=== PATIENT | female | born 1960 | race Caucasian/White ===

== ENCOUNTER → 2020-09-03 11:57 | Outpatient (BNVA) | payer OTHER, SELFPAY | DX: R21 Rash and other nonspecific skin eruption (principal); J02.9 Acute pharyngitis, unspecified; B09 Unspecified viral infection characterized by skin and mucous membrane lesions; J01.00 Acute maxillary sinusitis, unspecified | CPT/HCPCS: 87071; 87880 ==

== ENCOUNTER 2021-05-21 15:41 | Outpatient (CLI) | payer OTHER, SELFPAY ==
--- NOTE | 2021-05-21 15:47 | XR_ITS ---
WS: [id number] RIGHT FOOT: 3 VIEW(S) TECHNIQUE: AP, oblique and lateral. HISTORY: RIGHT ANKLE AND HEEL PAIN COMPARISON: None available. No acute fracture or dislocation. Normal tarsal/metatarsal alignment. Small calcaneal spur. No soft tissue abnormality. XR/XR foot RT min 3V* [id number] IMPRESSION: Small calcaneal spur. Otherwise negative.
--- NOTE | 2021-05-21 15:47 | XR_ITS ---
WS: [id number] RIGHT ANKLE: 3 VIEW(S) TECHNIQUE: AP, oblique(s) and lateral. HISTORY: RIGHT ANKLE AND HEEL PAIN COMPARISON: None available. Normal anatomic alignment with no fracture or dislocation. No joint effusion or widening of the ankle mortise. Small calcaneal spur. No soft tissue abnormality. XR/XR ankle RT min 3V* [id number] IMPRESSION: Small calcaneal spur.
== END 2021-05-21 15:42 | disposition home or self-care (01) ==
PROVIDERS: PCP Family Medicine; Visit Provider Clinical Nurse Specialist Adult Health
DX: M79.671 Pain in right foot (principal); M77.31 Calcaneal spur, right foot
CPT/HCPCS: 73610; 73630

== ENCOUNTER → 2022-12-31 15:52 | Outpatient (BNVA) | payer OTHER, SELFPAY | PROVIDERS: PCP Family Medicine; Visit Provider Family Medicine | DX: S92.511A Displaced fracture of proximal phalanx of right lesser toe(s), initial encounter for closed fracture (principal); W22.03XA Walked into furniture, initial encounter | CPT/HCPCS: 73630 ==

== ENCOUNTER 2023-01-20 10:59 | Outpatient (CLI) | payer OTHER, SELFPAY ==
--- NOTE | 2023-01-20 11:21 | XRR_ITS ---
PROCEDURE INFORMATION: Exam: XR Right Foot Exam date and time: 01/20/2023 11:26 AM Age: 62 years old Clinical indication: Condition or disease; Other: Broke their right 5th metatarsal 5 weeks; Additional info: S92.919a - unspecified fracture of unspecified toe(s), in. . . TECHNIQUE: Imaging protocol: Radiologic exam of the right foot. Views: 3 or more views. COMPARISON: CR XR foot RT min 3V* [id number] 12/31/2022 3:50 PM FINDINGS: Bones/joints: There is a healing oblique mildly displaced comminuted fracture involving the midshaft proximal phalange 5th digit. The 5th metatarsal is intact. Soft tissues: Soft tissue edema is seen in the proximal 5th digit. XR/XR foot RT min 3V* [id number] IMPRESSION: 1. Healing comminuted fracture proximal phalange of the 5th digit. 2. Soft tissue edema proximal 5th digit
== END 2023-01-20 11:00 | disposition home or self-care (01) ==
PROVIDERS: PCP Family Medicine; Visit Provider Family Medicine
DX: S92.511D Displaced fracture of proximal phalanx of right lesser toe(s), subsequent encounter for fracture with routine healing (principal); R60.0 Localized edema; X58.XXXD Exposure to other specified factors, subsequent encounter
CPT/HCPCS: 73630

== ENCOUNTER → 2023-10-07 14:17 | Outpatient (BNVA) | payer OTHER, SELFPAY | PROVIDERS: PCP Family Medicine; Visit Provider Family Medicine | DX: Z13.6 Encounter for screening for cardiovascular disorders (principal); E03.9 Hypothyroidism, unspecified; Z00.00 Encounter for general adult medical examination without abnormal findings | CPT/HCPCS: 80053; 80061; 83721; 84443 ==

== ENCOUNTER → 2023-11-22 11:07 | Outpatient (BNVA) | payer OTHER, SELFPAY | PROVIDERS: PCP Family Medicine; Visit Provider Family Medicine | DX: R39.9 Unspecified symptoms and signs involving the genitourinary system (principal); R05.3 Chronic cough; R05.8 Other specified cough | CPT/HCPCS: 81000 ==

== ENCOUNTER → 2024-04-09 08:26 | Outpatient (BNVA) | payer OTHER, SELFPAY | PROVIDERS: PCP Family Medicine; Visit Provider Podiatrist Foot & Ankle Surgery | DX: M79.672 Pain in left foot (principal); M72.2 Plantar fascial fibromatosis | CPT/HCPCS: 73630 ==

== ENCOUNTER 2024-06-06 19:54 | Inpatient (IN) | payer OTHER, SELFPAY ==
[2024-06-06] VITALS (26 sets, daily range): BP systolic 131–184; BP diastolic 85–102; PULSE 118–149; RESP 12–24; TEMP 38.1; O2SAT 90–99; BMI 23.8
--- NOTE | 2024-06-06 20:18 | CTR_ITS ---
PROCEDURE INFORMATION: Exam: CT Abdomen And Pelvis With Contrast Exam date and time: 06/06/2024 8:54 PM Age: 63 years old Clinical indication: Abdominal pain; Localized; Prior surgery; Surgery date: 6+ months; Surgery type: Tubal; Patient HX: C/O lower abd pain with nausea TECHNIQUE: Imaging protocol: Computed tomography of the abdomen and pelvis with contrast. Radiation optimization: All CT scans at this facility use at least one of these dose optimization techniques: automated exposure control; mA and/or kV adjustment per patient size (includes targeted exams where dose is matched to clinical indication); or iterative reconstruction. Contrast material: OMNI 350; Contrast volume: 100 ml; Contrast route: INTRAVENOUS (IV); COMPARISON: No relevant prior studies available. RADIATION DOSE METRICS: Total DLP (mGy-cm): 482.35 FINDINGS: Lungs: Visualized lung bases are clear. Liver: Normal appearance of the liver. Gallbladder and biliary ducts: Normal appearance of the gallbladder. No radiopaque cholelithiasis. Pancreas: Normal appearance of the pancreas. No ductal dilation. Spleen: Normal appearance of the spleen. Adrenal glands: Normal appearance of both adrenal glands. Kidneys and ureters: Normal renal parenchymal enhancement. No evidence of hydronephrosis. No nephrolithiasis is seen however evaluation for nephrolithiasis is limited secondary to contrast excretion. Stomach and bowel: Normal appearance of the stomach. Normal appearance of the small bowel without luminal dilation suggested. Mild proximal colonic stool. Appendix: The appendix is dilated and enhancing with adjacent inflammatory change consistent with acute appendicitis. Appendix measures approximately 1 cm in diameter. Minimal adjacent fluid without evidence of an abscess. No evidence of free air to suggest perforation. Intraperitoneal space: See Appendix finding. Vasculature: Pelvic calcifications, likely representing incidental phleboliths. There is moderate calcific atherosclerotic disease of the abdominal aorta. No evidence of an aneurysm. Lymph nodes: Unremarkable. No enlarged lymph nodes. Urinary bladder: Normal appearance of the urinary bladder. No intravesicular stone. Reproductive: Patient is status post hysterectomy. Bones/joints: Minimal scattered degenerative changes of the visualized spine. No aggressive osseous lesion or fracture is seen. Soft tissues: Unremarkable. CT/CT abdomen pelvis w con* [id number] IMPRESSION: 1. Dilated appendix with enhancement of the moore and adjacent inflammation consistent with appendicitis. Minimal adjacent fluid without evidence of abscess formation or free air to suggest gross perforation. 2. Other incidental and chronic findings as above.
--- NOTE | 2024-06-06 20:31 | W.ED.ABDPA2 ---
HPI - Abdominal Pain General: Chief Complaint: Abdominal Pain Stated Complaint: severe abd pain entire abd Time Seen by Provider: 06/06/24 20:15 History of Present Illness: 63-year-old female with a history of hypertension and hypothyroidism who presents to the emergency room with abdominal pain. Pain is diffuse but seems to be more lower than upper. She is very tender. She is a bit tachycardic on presentation. She has had some nausea but no vomiting. She has got a fever of 100.6 on presentation. No dysuria. Related Data Previous Rx's Medication Instructions Recorded camwalker #1 ea 12/31/22 citalopram 20 mg tablet See Rx Instructions .Route 06/19/23 .COMPLEX #90 tabs valsartan 80 1 tab PO DAILY #90 tabs 06/19/23 mg-hydrochlorothiazide 12.5 mg tablet benzonatate 200 mg capsule 200 mg PO BID PRN cough #30 caps 11/22/23 methylprednisolone 4 mg tablets in See Rx Instructions PO PER PKG DIR 04/13/24 a dose pack (Medrol (Gordon)) #21 ea amitriptyline 10 mg tablet 10 mg PO DAILY #90 tabs 05/31/24 levothyroxine 50 mcg tablet See Rx Instructions .Route 05/31/24 .COMPLEX #90 tabs Allergies Allergy/AdvReac Type Severity Reaction Status Date / Time codeine Allergy makes her Verified 06/06/24 20:13 feel funny Olnzpjz-CWP-NvV Reductase Allergy body aches Verified 06/06/24 20:13 Inhibitor Sulfa (Sulfonamide Allergy rash Verified 06/06/24 20:13 Antibiotics) Review of Systems Narrative: Constitutional symptoms: Negative except as documented in HPI. Skin symptoms: Negative except as documented in HPI. Eye symptoms: Negative except as documented in HPI. ENMT symptoms: Negative except as documented in HPI. Respiratory symptoms: Negative except as documented in HPI. Cardiovascular symptoms: Negative except as documented in HPI. Gastrointestinal symptoms: Negative except as documented in HPI. Genitourinary symptoms: Negative except as documented in HPI. Musculoskeletal symptoms: Negative except as documented in HPI. Neurologic symptoms: Negative except as documented in HPI. Psychiatric symptoms: Negative except as documented in HPI. Endocrine symptoms: Negative except as documented in HPI. [facility] ED PFSH: Medical History Hypertension Hypothyroidism Surgical History Hx of breast reduction, elective H/O: hysterectomy History of thyroid surgery Social History Smoking and tobacco/nicotine status: never used tobacco/nicotine Alcohol intake: current Alcohol intake frequency: holidays/special occasions only Substance/Drug Use: never Lives independently: Yes Household members: spouse Marital status: Number of children: 2 Current occupational status: retired Pets and animals: Yes Pets & animals: dog(s) Sexually active: Yes Physical Exam Narrative: EXAM NARRATIVE: General: Alert, no acute distress. Skin: Warm, dry. Head: Normocephalic, atraumatic. Neck: Supple, trachea midline. Eye: Extraocular movements are intact. Ears, nose, mouth and throat: mucosa moist. Cardiovascular: Regular, Normal peripheral perfusion. Respiratory: Lungs are clear to auscultation, respirations are non-labored, breath sounds are equal, Symmetrical chest wall expansion. Gastrointestinal: Soft, moderate diffuse abdominal pain to palpation, Non distended Musculoskeletal: Normal ROM, no deformity. Neurological: Alert and oriented, No focal neurological deficit observed. Psychiatric: Cooperative, appropriate mood & affect. Course Vital Signs: Vital signs: Vital Signs Temperature 100.6 F H 06/06/24 20:09 Pulse Rate 122 H 06/06/24 21:30 Respiratory Rate 13 06/06/24 21:30 Blood Pressure 165/88 06/06/24 21:30 Pulse Oximetry 96 06/06/24 21:30 Oxygen Delivery Me thod Room Air 06/06/24 20:38 MDM - Abdominal Pain Medical Decision Making Medical decision making: Differential diagnosis including but not limited to and based on the above HPI, review of systems and physical exam: Diverticulitis, urinary tract infection, small bowel obstruction, colitis Orders placed to evaluate differential diagnosis based on the above differential, HPI and physical exam Lab Review: Laboratory results were reviewed and interpreted by myself the emergency room physician. Leukocytosis with a white count of 16,000. Hemoglobin is 12.8. BUN and creatinine are 14 and 0.7. Respiratory panel is negative. Lactic acid is 2.3. Fluids are being given. Heart rate has improved with fluids and pain control. I reviewed the patient's medical record. CT of the abdomen and pelvis: Appears to have an acute appendicitis. I am waiting on official radiology review. This film was reviewed and interpreted by myself. Dr. Mendez will follow-up on the official read and if radiologist agree we will put in admit orders. Reexamination: Patient says the pain medicine worked for a while but is not working as well now. Redosing. Fluids are being given. Consultation: Spoke with Dr. Brown who is on-call for general surgery. He agrees to admission. Assessment and plan: Acute appendicitis ?IV fluids. IV Zosyn. IV Dilaudid. -I discussed the patient with the hospitalist on-call who is admitting the patient. - Discussed findings and plan with patient. Answered any questions. - All laboratory values were reviewed and interpreted personally by myself, the ER physician - All imaging was reviewed and interpreted personally by myself, the ER physician. - Evaluation and treatment of this problem were appropriate in the emergency setting Lab Data 06/06/24 20:31 06/06/24 20:31 Labs/Radiology: Laboratory Results WBC 15.63 10^3/uL (3.29-11.43) H 06/06/24 20:31 RBC 4.40 10^6/uL (3.85-5.65) 06/06/24 20:31 Hgb 12.80 g/dL (11.27-16.99) 06/06/24 20:31 Hct 37.6 % (36-47) 06/06/24 20: MCV 85.5 fl (85-98) 06/06/24 20: MCH 29.1 pg (27-33) 06/06/24 20: MCHC 34.0 g/dL (30-55) 06/06/24 20: RDW 12.3 % (12.1-15.1) 06/06/24 20: Plt Count 230 10^3/cmm (157-399) 06/06/24 20: MPV 11.2 fL (7.4-10.4) H 06/06/24 20:31 Neut % (Auto) 78.5 % 06/06/24 20: Lymph % (Auto) 12.1 % 06/06/24 20:31 Randall % (Auto) 7.5 % 06/06/24 20:31 Eos % (Auto) 1.0 % 06/06/24 20:31 Baso % (Auto) 0.5 % 06/06/24 20:31 Neut # (Auto) 12.27 10^3/uL (1.8-7.7) H 06/06/24 20:31 Lymph # (Auto) 1.9 10^3/uL (0.8-4.8) 06/06/24 20:31 Randall # (Auto) 1.2 10^3/uL (0.2-0.9) H 06/06/24 20:31 Eos # (Auto) 0.2 10^3/uL (0.0-0.8) 06/06/24 20: Baso # (Auto) 0.1 10^3/uL (0.0-0.1) 06/06/24 20:31 Nucleated RBC % (auto) 0 % 06/06/24 20:31 Nucleated RBCs # 0.0 /100WBC 06/06/24 20:31 Sodium 138 mmol/L (136-145) 06/06/24 20:31 Potassium 3.7 mmol/L (3.5-5.1) 06/06/24 20:31 Chloride 102 mmol/L (98-107) 06/06/24 20:31 Carbon Dioxide 24 mmol/L (22-29) 06/06/24 20:31 Anion Gap 15.7 (5-19) 06/06/24 20:31 BUN 14 mg/dL (8-23) 06/06/24 20:31 Creatinine 0.7 mg/dL (0.5-0.9) 06/06/24 20:31 GFR Calculation 84.8 mL/min (90-130) L 06/06/24 20:31 Glucose 135 mg/dL (65-115) H 06/06/24 20:31 Calculated Osmolality 289 mOsm/kg (285-295) 06/06/24 20:31 Lactic Acid 2.3 mmol/L (0.5-2.2) H 06/06/24 20:31 Calcium 9.3 mg/dL (8.5-10.5) 06/06/24 20:31 Total Bilirubin 0.2 mg/dL (0.15-1.2) 06/06/24 20:31 AST 12 U/L (0-32) 06/06/24 20:31 ALT 11 U/L (0-33) 06/06/24 20:31 Alkaline Phosphatase 83 U/L (35-105) 06/06/24 20:31 C-Reactive Protein 3.0 mg/L (0.0-4.9) 06/06/24 20:31 Total Protein 7.1 g/dL (6.6-8.7) 06/06/24 20:31 Albumin 4.4 g/dL (3.5-5.2) 06/06/24 20:31 Globulin 2.7 g/dL (1.3-4.6) 06/06/24 20:31 Lipase 43 U/L (13-60) 06/06/24 20:31 Procalcitonin 0.04 ng/mL (0-0.5) 06/06/24 20:31 Amorphous Sediment Not Reportable 06/06/24 21:53 Coronavirus (PCR) Negative (Negative) 06/06/24 20:40 Influenza A (PCR) Negative (Negative) 06/06/24 20:40 Influenza Type B (PCR) Negative (Negative) 06/06/24 20:40 RSV (PCR) Negative (Negative) 06/06/24 20:40 XR interpretation done by ED provider, pending radiology final review Discharge Plan Discharge Patient Disposition: Admitted As Inpatient Clinical Impression: Acute appendicitis Condition: Stable Coding Level of Care Code ED Supervisor Product Inspection for Carla Brown
[2024-06-06] MEDS: ondansetron 2 mg/ML SDV 2 mL 8 MG IVP (20:34)
[2024-06-06] MEDS: sodium chloride 0.9% 1,000 ML 999 ML IV (20:34)
[2024-06-06] MEDS: HYDROmorphone 1 mg/mL INJ 1 mL IVP ×2 (20:38→22:23)
[2024-06-06 20:51] LABS: Basophils # 0.1 10^3/uL (0.0-0.1); Basophils % 0.5 %; Eosinophils # 0.2 10^3/uL (0.0-0.8); Hematocrit 37.6 % (36-47); Lymphocytes # 1.9 10^3/uL (0.8-4.8); Lymphocytes % 12.1 %; Mean Corpuscular Hemoglobin 29.1 pg (27-33); Mean Corpuscular Volume 85.5 fl (85-98); Mean Platelet Volume 11.2 fL (7.4-10.4); Monocytes # 1.2 10^3/uL (0.2-0.9); Monocytes % 7.5 %; Neutrophils # 12.27 10^3/uL (1.8-7.7); Neutrophils % 78.5 %; Nucleated Red Blood Cells % 0 %; Platelet Count 230 10^3/cmm (157-399); Red Cell Distribution Width 12.3 % (12.1-15.1); White Blood Count 15.63 10^3/uL (3.29-11.43)
[2024-06-06] MEDS: iohexol 350 mg/mL 500 mL Btl (per mL) IV (20:57)
[2024-06-06 21:11] LABS: Alanine Aminotransferase 11 U/L (0-33); Albumin Level 4.4 g/dL (3.5-5.2); Alkaline Phosphatase 83 U/L (35-105); Anion Gap 15.7 (5-19); Aspartate Amino Transferase 12 U/L (0-32); Blood Urea Nitrogen 14 mg/dL (8-23); Calcium 9.3 mg/dL (8.5-10.5); Carbon Dioxide 24 mmol/L (22-29); Chloride 102 mmol/L (98-107); Creatinine Clr Calc Pharmacy 82.1289; Globulin 2.7 g/dL (1.3-4.6); Glomerular Filtration Rate 84.8 mL/min (90-130); Glucose 135 mg/dL (65-115); Lipase 43 U/L (13-60); Osmolality Calculated 289 mOsm/kg (285-295); Potassium 3.7 mmol/L (3.5-5.1); Sodium 138 mmol/L (136-145); Total Bilirubin 0.2 mg/dL (0.15-1.2); Total Protein 7.1 g/dL (6.6-8.7)
[2024-06-06 21:12] LABS: Lactic Sepsis W/Reflex 2.3 mmol/L (0.5-2.2)
[2024-06-06 21:18] LABS: Procalcitonin 0.04 ng/mL (0-0.5)
[2024-06-06 21:31] LABS: Covid PCR NEGATIVE (Negative); Influenza A NEGATIVE (Negative); Influenza B NEGATIVE (Negative); Respiratory Syncytial Virus Ce NEGATIVE (Negative)
[2024-06-06 22:03] LABS: Bilirubin Urine Negative (Negative); Blood Urine Negative (Negative); Glucose Urine UA Negative (Normal); Ketones Urine Negative (Negative); Leukocyte Esterase Urine Negative (Negative); Nitrate Urine Negative (Negative); Protein Urine Negative (Negative); Urine Appearance Clear (CLEAR); Urine Color Yellow (Yellow); Urobilinogen Urine 0.2 mg/dL (Negative)
[2024-06-06 22:05] LABS: Bacteria Urine None Seen /hpf; RBC Urine 0-2 /hpf (0-2); Squamous Epithelial Cell Urine 0-5 /hpf (0-5); WBC Urine 0-5 /hpf (0-5)
[2024-06-06 22:10] LABS: Specific Gravity, Urine 1.057 (1.005-1.030)
[2024-06-06] MEDS: sodium chloride 0.9% 1,000 ML 100 ML IV (22:21)
[2024-06-06] MEDS: piperacillin-tazobactam 4.5 GM in sodium chloride 0.9% (plus) 50 ML IV (22:25)
[2024-06-06 22:36] LABS: Reflex Lactate Order REFLEX LACTIC ORDERD
[2024-06-07] VITALS (26 sets, daily range): BP systolic 93–178; BP diastolic 51–95; PULSE 89–117; RESP 13–18; TEMP 36.6–39.1; O2SAT 90–100
[2024-06-07] MEDS: oxyCODONE 5 mg IR Tab/Cap PO ×4 (00:19→21:33)
[2024-06-07 00:21] LABS: Lactic Acid level (Lactate) 2.4 mmol/L (0.5-2.2)
[2024-06-07] MEDS: acetaminophen 500 mg Tablet 1000 MG PO (05:15)
[2024-06-07] MEDS: piperacillin-tazobactam 3.375 GM in sodium chloride 0.9% (plus) 50 ML IV ×2 (06:39→21:33)
[2024-06-07] MEDS: sodium chloride 0.9% 1,000 ML 100 ML IV (08:47)
[2024-06-07] MEDS: ondansetron 2 mg/ML SDV 2 mL 4 MG IVP (09:19)
[2024-06-07] MEDS: morphine 4 mg/mL SDV 1 mL 2 MG IVP ×2 (09:22→22:32)
--- NOTE | 2024-06-07 09:46 | PC.CHAP ---
Pastoral Care Encounter/Spiritual Assessment Type of Contact [] Declined finishing and shipping supervisor visit [] Patient/Family/Request visit [] Outpatient visit [] Follow-up visit [] Physician referral [] Code/Alert [x] Routine visit [] Staff referral [] Actively dying [] Patient sleeping [] Family support [] [] Out of room [] Palliative care [] [x] Receiving care in room [] Pre-surgical visit [] Trauma [] Long length of stay [] ICU visit [] Other: Relational/Emotional Strength [] Patient feels connected with others/family/visitors/staff [] Distress [] Loneliness/isolation [] Abandonment Spirituality of Patient [] Person of Bita [] Attends Jew of their Bita [] Believes in Prayer [] Reads Bible or Samaritan materials [] There are Spiritual issues to be addressed Bi Tester Interventions [x] Prayer [] Active listening [] Non-anxious presence [] Spiritual/emotional support [] Crisis/trauma care [] Spiritual counseling [] Bereavement support [] Provided bereavement packet [] Provided Bible/devotional materials [] Provided toy/stuffed animal, coloring book to patient or family member [] Provided Communion [] Anointing/Maud [] Salvation [] Completed spiritual assessment [] Other: Impact on Illness or Injury [] Angry [] Fearful [] Anxious [] Often cries [] Exhaustion [] Unable to work [] Unable to attend roman catholic [] Unable to walk/stand [] Unable to read [] Unable to drive [] Unable to eat/drink [] Unable to sleep [] Unable to be with family [] Patient intubated [] Other: Summary Time spent with patient
--- NOTE | 2024-06-07 11:24 | PC.NURSE ---
surgery Patient went down to surgery, and family at her side.
[2024-06-07] MEDS: sodium chloride 0.9% 1,000 ML 30 ML IV (11:43)
--- NOTE | 2024-06-07 12:04 | P.ANESASSM_ITS ---
Pre-Anesthetic Assessment Height/Weight: Height 1.68 m Weight 67.132 kg Temp Pulse Resp BP Pulse Ox O2 Del Method 101.1 F H 109 H 18 127/65 97 Room Air 06/07/24 11:33 06/07/24 11:33 06/07/24 11:33 06/07/24 11:33 06/07/24 11:33 06/07/24 11:33 Operation Date: 06/07/24 14:10 Proposed Procedures p Laparoscopic Appendectomy(Not Applicable) - Eitan Brown MD Familial anesthetic complications: Sensitive to anesthesia, slow to wake up and slow Resp rate if given too much Was Beta Karley taken within 24 hours: N/A Was Clonidine taken within 24 hours: N/A Last intake: Intake Last Liquid Date 06/06/24 Last Liquid Time 23:58 Last Solid Date 06/06/24 Last Solid Time 16:00 Social No alcohol and No tobacco Exam alert, oriented x 3, clear to auscultation bilaterally and regular rate & rhythm Airway Mallampati: Class II Dentition: full CV/HEM Hypertension Metabolic Hyperlipidemia Anesthetic Plan ASA status: 2 Anesthesia: General Risk of > 500 ml blood loss (7ml/kg in children): No Medications/Allergies Home Medications Medication Instructions Recorded Confirmed Last Taken Type citalopram 20 mg tablet See Rx Instructions .Route 06/19/23 06/07/24 06/06/24 Rx .COMPLEX #90 tabs valsartan 80 1 tab PO DAILY #90 tabs 06/19/23 06/07/24 06/06/24 Rx mg-hydrochlorothiazide 12.5 mg tablet amitriptyline 10 mg tablet 10 mg PO DAILY #90 tabs 05/31/24 06/07/24 06/06/24 Rx levothyroxine 50 mcg tablet See Rx Instructions .Route 05/31/24 06/07/24 06/06/24 Rx .COMPLEX #90 tabs Allergies Allergy/AdvReac Type Severity Reaction Status Date / Time codeine Allergy makes her Verified 06/06/24 20:13 feel funny Ludvbie-FRP-MgV Reductase Allergy body aches Verified 06/06/24 20:13 Inhibitor Sulfa (Sulfonamide Allergy rash Verified 06/06/24 20:13 Antibiotics) Current Medications Generic Name Dose Route Start Last Admin Trade Name Freq PRN Reason Stop Dose Admin Sodium Chloride 1,000 mls @ 100 mls/hr 06/06/24 22:00 06/07/24 08:47 Sodium Chloride 0.9% IV 100 mls/hr .Q10H VIGNESH Administration Piperacillin Sod/Tazobactam 50 mls @ 12.5 mls/hr 06/07/24 06:00 06/07/24 11:04 Sod 3.375 gm/ Sodium Chloride IV Infused Q8H VIGNESH Infusion Sodium Chloride 1,000 mls @ 30 mls/hr 06/07/24 11:30 06/07/24 11:43 Sodium Chloride 0.9% IV 06/08/24 11:29 30 mls/hr .Q24H VIGNESH Administration Morphine Sulfate 2 mg 06/07/24 00:10 06/07/24 09:22 Morphine 4 Mg/Ml Sdv 1 Ml IVP 2 mg Q4H PRN Administration SEVERE PAIN Ondansetron HCl 4 mg 06/07/24 09:06 06/07/24 09:19 Ondansetron 2 Mg/Ml Sdv 2 Ml IVP 4 mg Q6H PRN Administration NAUSEA AND VOMITING Oxycodone HCl 5 mg 06/07/24 00:05 06/07/24 06:02 Oxycodone 5 Mg Ir Tab/Cap PO 5 mg Q4H PRN Administration MODERATE PAIN PFSH Anesthesia Medical History Hypertension Hypothyroidism Surgical History Hx of breast reduction, elective H/O: hysterectomy History of thyroid surgery Social History Smoking and tobacco/nicotine status: never used tobacco/nicotine Alcohol intake: current Alcohol intake frequency: holidays/special occasions only Substance/Drug Use: never Lives independently: Yes Household members: spouse Marital status: Number of children: 2 Current occupational status: retired Pets and animals: Yes Pets & animals: dog(s) Sexually active: Yes Data Anesthesia 06/06/24 20:31 06/06/24 20:31 Short CBC 06/06/24 Range/Units 20:31 WBC 15.63 H (3.29-11.43) 10^3/uL Hgb 12.80 (11.27-16.99) g/dL Hct 37.6 (36-47) % MCV 85.5 (85-98) fl Plt Count 230 (157-399) 10^3/cmm Neut % (Auto) 78.5 % Neut # (Auto) 12.27 H (1.8-7.7) 10^3/uL BMP 06/06/24 20:31 Sodium 138 Potassium 3.7 Chloride 102 Carbon Dioxide 24 BUN 14 Creatinine 0.7 Glucose 135 H Calcium 9.3 Liver Function 06/06/24 Range/Units 20:31 Total Bilirubin 0.2 (0.15-1.2) mg/dL AST 12 (0-32) U/L ALT 11 (0-33) U/L Alkaline Phosphatase 83 (35-105) U/L Albumin 4.4 (3.5-5.2) g/dL Urine 06/06/24 Range/Units 21:53 Urine Color Yellow (Yellow) Urine Appearance Clear (CLEAR) Urine pH 7.0 (5-7) Ur Specific Distant 1.057 H (1.005-1.030) Urine Protein Negative (Negative) Urine Glucose (UA) Negative (Normal) Urine Ketones Negative (Negative) Urine Nitrate Negative (Negative) Urine Bilirubin Negative (Negative) Ur Leukocyte Esterase Negative (Negative) Urine RBC 0-2 (0-2) /hpf Urine WBC 0-5 (0-5) /hpf COVID Results 06/06/24 20:40 Coronavirus (PCR) Negative Coags 06/06/24 20:31 C-Reactive Protein 3.0 Microbiology 06/06/24 22:05 Blood Culture - Preliminary Blood SPECIMEN COLLECTED 06/06/24 21:59 Blood Culture - Preliminary Blood SPECIMEN COLLECTED Cardiac Studies: 2 No Data to Display
--- NOTE | 2024-06-07 12:35 | P.HP_ITS ---
Providers/Chief Complaint 2 Admitting Physician: Eitan Brown MD Primary Care Provider: Eric Vizcaino DO Chief Complaint: severe abd pain entire abd History of Present Illness Soraya Espinal is a 63 year old female who presents with acute uncomplicated appendicitis. Patient reports right lower quadrant pain, nausea, vomiting. She also reports a fever. CT scan consistent with acute appendicitis. Medications/Allergies Home Medications Medication Instructions Recorded Confirmed Last Taken Type citalopram 20 mg tablet See Rx Instructions .Route 06/19/23 06/07/24 06/06/24 Rx .COMPLEX #90 tabs valsartan 80 1 tab PO DAILY #90 tabs 06/19/23 06/07/24 06/06/24 Rx mg-hydrochlorothiazide 12.5 mg tablet amitriptyline 10 mg tablet 10 mg PO DAILY #90 tabs 05/31/24 06/07/24 06/06/24 Rx levothyroxine 50 mcg tablet See Rx Instructions .Route 05/31/24 06/07/24 06/06/24 Rx .COMPLEX #90 tabs Allergies Allergy/AdvReac Type Severity Reaction Status Date / Time codeine Allergy makes her Verified 06/06/24 20:13 feel funny Efamqau-KUS-NgJ Reductase Allergy body aches Verified 06/06/24 20:13 Inhibitor Sulfa (Sulfonamide Allergy rash Verified 06/06/24 20:13 Antibiotics) PFSH Acute 2 PFSH: Medical History Hypertension Hypothyroidism Surgical History Hx of breast reduction, elective H/O: hysterectomy History of thyroid surgery Social History Smoking and tobacco/nicotine status: never used tobacco/nicotine Alcohol intake: current Alcohol intake frequency: holidays/special occasions only Substance/Drug Use: never Lives independently: Yes Household members: spouse Marital status: Number of children: 2 Current occupational status: retired Pets and animals: Yes Pets & animals: dog(s) Sexually active: Yes Vitals/I&O/Wt Last Vital Signs Temp 101.1 F H 06/07/24 11:33 Pulse 109 H 06/07/24 11:33 Resp 18 06/07/24 11:33 BP 127/65 06/07/24 11:33 Pulse Ox 97 06/07/24 11:33 O2 Del Method Room Air 06/07/24 11:33 06/06/24 06/07/24 06/07/24 22:59 06:59 14:59 Intake Total 1000 / 1000 50 / 1050 1050 / 1050 Balance 1000 / 1000 50 / 1050 1050 / 1050 Weight last 48 hrs Weight 148 lb Weight 148 lb Weight 148 lb Physical Exam 2 Narrative: Chest: Unlabored breathing room air. No lymphadenopathy. Heart: Regular rate and rhythm. Abdomen: Soft, tender RLQ , mildly distended. No masses or lymphadenopathy. Data 06/06/24 20:31 06/06/24 20:31 Micro: Microbiology 06/06/24 22:05 Blood Culture - Preliminary Blood SPECIMEN COLLECTED 06/06/24 21:59 Blood Culture - Preliminary Blood SPECIMEN COLLECTED A&P Assessment and plan (1) Acute appendicitis: Plan 63-year-old female who presents with acute uncomplicated appendicitis. I have explained the risks of benefits of laparoscopic appendectomy possible open and patient agrees to proceed. Attestations 2 Medical Necessity Statement*: IV antibiotics, IV fluids, surgery Coding Level of Care Code 58629 Diagnoses Acute appendicitis K35.80 Time Spent (min) 30
--- NOTE | 2024-06-07 13:45 | PM.OP ---
Operative Report Date of procedure: June 07, 2024 Pre-op diagnosis: Acute uncomplicated appendicitis Post-op diagnosis: same Post-op findings: Acute appendicitis Procedure done: Laparoscopic appendectomy Implants: None Specimens removed/disposition: Appendix Pathology: Appendix Surgeon: Eitan Brown MD Pharmacy Picking Technician: None Anesthesia: General Estimated blood loss (mL): 10 Condition: stable Disposition: floor Brief History: 63-year-old female who presented with acute uncomplicated appendicitis. Discussed risk and benefits of laparoscopic appendectomy and patient agreed to proceed. Procedure: After having a discussion about risks and benefits and obtaining consent, patient was brought to the OR. SCDs were functioning prior to intubation. Rocephin was given 5min prior to incision. General anesthesia was administered. Arms were tucked. A vivas catheter was placed. The abdomen was prepped and draped in the usual sterile fashion. Insufflation was achieved using a Veress needle at Wilkinson's point (15mmHg). A 5mm port was placed at the umbilicus using an optical view port. Then a 5mm port was placed suprapubically, and a 12mm port was placed in the left lower quadrant. The abdomen was inspected and no injuries were noted. Patient was placed in Trendelenburg and the table was rotated left. Using atraumatic bowel graspers the small bowel was placed on the left side of the abdomen, revealing the cecum and inflammed appendix. The appendix was dissected off the pelvic side wall bluntly. The appendix was grasped and the mesoappendix was taken down using a Ligasure. The base of the appendix was found to be intact. I proceeded to staple off the appendix at its base using a laparoscopic stapler with a blue load. The appendix was then retrieved using an endocatch bag. The staple line on the cecum was inspected, and found to be intact. I irrigated the right iliac keo with 2L of normal saline. The abdomen was desufflated and skin was closed using 4-0 monocryl and surgical glue. A 19F Solitario drain was left in the right paracolic gutter. The patient woke up from anesthesia and was transferred to PACU without any complications
[2024-06-07] MEDS: BUPivacaine 0.25% INJ 10 mL INJECTION (13:50)
[2024-06-07] MEDS: lidocaine 1% 10 ML INJ 20 ML INJECTION (13:50)
--- NOTE | 2024-06-07 14:40 | ANE.PACU2 ---
Inpatient post-anesthesia follow up: Airway intact: Yes Vital signs: Temperature 102.6 F Pulse Rate 102 Respiratory Rate 16 Blood Pressure 120/68 Pulse Oximetry 96 Oxygen Delivery Me thod Nasal Cannula Oxygen Flow Rate 3 Fraction of Inspir ed Oxygen Hydration adequate: Yes Nausea and vomiting: No Pain level: 1 Mental status: Baseline
--- NOTE | 2024-06-07 16:58 | XRR_ITS ---
PROCEDURE INFORMATION: Exam: XR Chest Exam date and time: 06/07/2024 5:09 PM Age: 63 years old Clinical indication: Other: Possible aspiration TECHNIQUE: Imaging protocol: Radiologic exam of the chest. Views: 2 views. COMPARISON: CT abdomen pelvis w con* [id number] 06/06/2024 8:54 PM FINDINGS: Lungs: No focal consolidation. Nonspecific hazy opacities in the mid to lower left lung, which may reflect atelectasis. Aspiration pneumonitis would be difficult to exclude in the proper clinical setting. Pleural spaces: No evidence of pneumothorax. No evidence of pleural effusion. Heart/Mediastinum: Cardiomediastinal silhouette is within normal limits. Bones/joints: No evidence of acute osseous abnormality. XR/XR chest 2V insp/exp [id number] IMPRESSION: 1. Nonspecific hazy opacities in the mid to lower left lung, which may reflect atelectasis. Aspiration pneumonitis would be difficult to exclude in the proper clinical setting.
[2024-06-08] VITALS (13 sets, daily range): BP systolic 105–128; BP diastolic 56–68; PULSE 82–131; RESP 15–20; TEMP 36.6–39.2; O2SAT 90–98
[2024-06-08] MEDS: piperacillin-tazobactam 3.375 GM in sodium chloride 0.9% (plus) 50 ML IV ×3 (05:30→21:31)
[2024-06-08] MEDS: oxyCODONE 5 mg IR Tab/Cap PO ×4 (05:39→23:49)
[2024-06-08] MEDS: sodium chloride 0.9% 1,000 ML 100 ML IV ×2 (05:40→16:24)
[2024-06-08] MEDS: acetaminophen 325 mg Tablet 650 MG PO ×3 (09:51→21:35)
[2024-06-08] MEDS: heparin 5,000 unit/mL INJ 1 mL 5000 UNIT SUBCUT ×2 (09:52→16:23)
[2024-06-08] MEDS: ipratropium-albuterol 3 mL Neb INHALATION (13:46)
--- NOTE | 2024-06-08 14:09 | P.PN_ITS ---
Subjective 2 Subjective: 63-year-old female status post lap appen dectomy. Having bowel function Tolerating regular diet Incisions clean dry and intact Drain serosanguineous 2 L nasal cannula. Chest x-ray consiste nt with postop atelectasis. Had a fever overnight Vitals/I&O/Wt Last Vital Signs Temp 102.6 F H 06/08/24 09:33 Pulse 125 H 06/08/24 14:03 Resp 20 H 06/08/24 14:03 BP 120/68 06/08/24 08:00 Pulse Ox 91 06/08/24 14:03 O2 Del Method Nasal Cannula 06/08/24 14:03 O2 Flow Rate 3 06/08/24 14:03 06/07/24 06/08/24 06/08/24 22:59 06:59 14:59 Intake Total 2000 / 4250 50 / 4300 290 / 290 Output Total 110 / 220 30 / 250 Balance 1890 / 4030 20 / 4050 290 / 290 Weight last 48 hrs Weight 166 lb 4 oz Weight 148 lb Weight 148 lb Weight 148 lb Physical Exam 2 Narrative: Chest: Unlabored breathing 2 L nasal cannula. No lymphadenopathy. Heart: Regular rate and rhythm. Abdomen: Soft, appropriately tender, mildly distended. No masses or lymphadenopathy. Draining serosanguineous. Incisions clean dry intact. Data 06/06/24 20:31 06/06/24 20:31 Micro: Microbiology 06/06/24 22:05 Blood Culture - Preliminary Blood NEGATIVE TO DATE 06/06/24 21:59 Blood Culture - Preliminary Blood NEGATIVE TO DATE A&P Assessment and plan (1) Acute appendicitis: Plan 63-year-old female status post lap appendectomy. Progressing as expected. Suspect oxygen requirement as well as fevers are secondary to atelectasis. Encouraged patient to use incentive spirometer, get out of bed, walk. I discussed with nursing the need for respiratory therapy to do aggressive pulmonary toilet as well as giving her breathing treatment. If she weans off the oxygen she is cleared for discharge. She will keep the drain and be discharged on a course of p.o. antibiotics. Follow-up in 2 weeks. Attestations 2 Medical Necessity Statement*: 2 L nasal cannula, IV antibiotics Coding Level of Care Code 48509 Diagnoses Acute appendicitis K35.80 Time Spent (min) 30
--- NOTE | 2024-06-08 16:46 | CTR_ITS ---
PROCEDURE INFORMATION: Exam: CTA Chest With Contrast Exam date and time: 06/08/2024 9:03 PM Age: 63 years old Clinical indication: Shortness of breath; Additional info: Oxygen requiremint post op TECHNIQUE: Imaging protocol: Computed tomographic angiography of the chest with contrast. Exam focused on the arteries. 3D rendering (Not supervised by radiologist): MIP and/or 3D reconstructed images were created by the technologist. Radiation optimization: All CT scans at this facility use at least one of these dose optimization techniques: automated exposure control; mA and/or kV adjustment per patient size (includes targeted exams where dose is matched to clinical indication); or iterative reconstruction. Contrast material: OMNI 350; Contrast volume: 100 ml; Contrast route: INTRAVENOUS (IV); COMPARISON: CR (CHEST, ) 06/07/2024 5:09 PM RADIATION DOSE METRICS: Total DLP (mGy-cm): 358 FINDINGS: Pulmonary arteries: Normal. No pulmonary emboli. Aorta: Unremarkable. No aortic aneurysm. No aortic dissection. Lungs: Patchy bilateral airspace infiltrates. Pleural spaces: Small bilateral pleural effusions. Heart: Cardiomegaly. Coronary arteries: Coronary artery atherosclerotic calcifications. Lymph nodes: Scattered mildly enlarged lymph nodes measuring up to 10 mm, nonspecific. Liver: Hepatic steatosis and hepatomegaly. Bones/joints: Unremarkable. No acute fracture. Soft tissues: Unremarkable. CT/CT angio chest PE protcl [id number] IMPRESSION: 1. Negative for pulmonary embolus. 2. Scattered mildly enlarged lymph nodes measuring up to 10 mm, nonspecific. 3. Small bilateral pleural effusions. 4. Hepatic steatosis and hepatomegaly. 5. Patchy bilateral airspace infiltrates. 6. Coronary artery atherosclerotic calcifications. 7. Cardiomegaly.
[2024-06-08] MEDS: levothyroxine 50 mcg Tablet PO (18:16)
[2024-06-08] MEDS: citalopram 20 mg Tablet PO (18:16)
[2024-06-08 18:39] LABS: Anion Gap 14.5 (5-19); Blood Urea Nitrogen 9 mg/dL (8-23); Calcium 7.9 mg/dL (8.5-10.5); Carbon Dioxide 21 mmol/L (22-29); Chloride 106 mmol/L (98-107); Creatinine Clr Calc Pharmacy 75.6741; Glomerular Filtration Rate 72.7 mL/min (90-130); Glucose 145 mg/dL (65-115); Osmolality Calculated 287 mOsm/kg (285-295); Potassium 3.5 mmol/L (3.5-5.1); Sodium 138 mmol/L (136-145)
[2024-06-08 18:48] LABS: Basophils % 0.1 %; Hematocrit 29.7 % (36-47); Lymphocytes # 0.9 10^3/uL (0.8-4.8); Lymphocytes % 8.1 %; Mean Corpuscular HGB Conc 32.7 g/dL (30-55); Mean Corpuscular Hemoglobin 29.5 pg (27-33); Mean Corpuscular Volume 90.3 fl (85-98); Mean Platelet Volume 11.5 fL (7.4-10.4); Monocytes # 0.5 10^3/uL (0.2-0.9); Monocytes % 4.9 %; Neutrophils # 9.25 10^3/uL (1.8-7.7); Neutrophils % 86.3 %; Nucleated Red Blood Cells % 0 %; Platelet Count 167 10^3/cmm (157-399); Red Blood Count 3.29 10^6/uL (3.85-5.65); Red Cell Distribution Width 13.1 % (12.1-15.1); White Blood Count 10.71 10^3/uL (3.29-11.43)
[2024-06-08] MEDS: iohexol 350 mg/mL 500 mL Btl (per mL) IV (21:06)
[2024-06-09] MEDS: heparin 5,000 unit/mL INJ 1 mL 5000 UNIT SUBCUT ×2 (01:47→08:06)
[2024-06-09 04:00] VITALS: BP 133/63; PULSE 100; RESP 18; TEMP 37.4; O2SAT 92
[2024-06-09 05:06] LABS: Basophils % 0.4 %; Eosinophils % 0.1 %; Lymphocytes # 0.8 10^3/uL (0.8-4.8); Lymphocytes % 10.7 %; Mean Corpuscular HGB Conc 32.1 g/dL (30-55); Mean Corpuscular Hemoglobin 29.4 pg (27-33); Mean Corpuscular Volume 91.8 fl (85-98); Mean Platelet Volume 11.9 fL (7.4-10.4); Monocytes # 0.5 10^3/uL (0.2-0.9); Monocytes % 6.8 %; Neutrophils # 6.04 10^3/uL (1.8-7.7); Neutrophils % 81.7 %; Nucleated Red Blood Cells % 0 %; Platelet Count 151 10^3/cmm (157-399); Red Blood Count 3.16 10^6/uL (3.85-5.65); Red Cell Distribution Width 13.2 % (12.1-15.1); White Blood Count 7.39 10^3/uL (3.29-11.43)
[2024-06-09] MEDS: sodium chloride 0.9% 1,000 ML 100 ML IV (05:58)
[2024-06-09] MEDS: piperacillin-tazobactam 3.375 GM in sodium chloride 0.9% (plus) 50 ML IV (05:59)
[2024-06-09 06:02] VITALS: RESP 16
[2024-06-09] MEDS: oxyCODONE 5 mg IR Tab/Cap PO (06:02)
--- NOTE | 2024-06-09 07:05 | P.PN_ITS ---
Subjective 2 Subjective: 3 L nasal cannula today No dyspnea CT PE performed yesterday due to concerns for tachycardia and tachypnea. It was done to rule out pulmonary embolism. No evidence of PE on CT PE. MARISOL today is serous. Tachycardia improved No fevers Patient feels okay Tolerating regular diet White count is trending down Vitals/I&O/Wt Last Vital Signs Temp 99.3 F 06/09/24 04:00 Pulse 100 06/09/24 04:00 Resp 16 06/09/24 06:02 BP 133/63 06/09/24 04:00 Pulse Ox 92 06/09/24 04:00 O2 Del Method Nasal Cannula 06/08/24 20:00 O2 Flow Rate 3 06/08/24 20:00 06/08/24 06/09/24 06/09/24 22:59 06:59 14:59 Intake Total 1530 / 2060 1410 / 3470 Output Total 35 / 55 Balance 1510 / 2040 1375 / 3415 Weight last 48 hrs Weight 168 lb 9.6 oz Weight 166 lb 4 oz Physical Exam 2 Narrative: Chest: Unlabored breathing 3 L nasal cannula. No lymphadenopathy. Heart: Regular rate and rhythm. Abdomen: Soft, appropriately tender, mildly distended. No masses or lymphadenopathy. Drain serous. Data 06/09/24 04:35 06/08/24 18:13 A&P Assessment and plan (1) Acute appendicitis: Plan 63-year-old female status post lap appendectomy. Had some issues with atelectasis and has been requiring nasal cannula. Have emphasized the need for aggressive pulmonary toilet to patient as well as nursing staff 3 in the past 2 days. Patient is doing better today and her white count is trending down. Drain is serous today. CTPE done to rule out pulmonary embolism given tachycardia yesterday. Tachycardia improved. Plan to discharge today on p.o. antibiotics. Patient should leave with drain in place. Nursing to teach about drain care. Follow-up with me in 1 to 2 weeks. Attestations 2 Medical Necessity Statement*: Nasal cannula, IV antibiotics, CT PE to rule out pulmonary embolism Coding Level of Care Code 18707 Diagnoses Acute appendicitis K35.80 Time Spent (min) 30
[2024-06-09 08:00] VITALS: BP 169/84; PULSE 111; RESP 18; TEMP 37.3; O2SAT 90
[2024-06-09] MEDS: citalopram 20 mg Tablet PO (08:06)
[2024-06-09] MEDS: levothyroxine 50 mcg Tablet PO (08:06)
[2024-06-09 12:00] VITALS: BP 159/77; PULSE 121; RESP 18; TEMP 37.6
--- NOTE | 2024-06-09 12:59 | P.DS_ITS ---
Discharge Providers Date of Admission: 06/06/24 22:00 Date of Discharge: June 09, 2024 Attending Provider at Admission: Eitan Brown MD Attending Provider at Discharge: Eitan Brown MD Primary Care Provider: Eric Vizcaino DO Diagnoses at Discharge Discharge Diagnosis (1) Acute appendicitis: Status: Resolved Reason for Visit Reason for Visit: severe abd pain entire abd Hospital Course Hospital Course 63-year-old female who presented with appendicitis. Status post laparoscopic appendectomy and drain placement. Patient treated with a course of 5 antibiotics. During her hospital stay patient required nasal cannula given ate lectasis. CT PE done to rule out pulmonary embolism. Patient being discharged with a course of p.o. antibiotics. Patient will keep the drain and follow-up in clinic in 1 to 2 weeks. Physical Exam Narrative: Chest: Unlabored breathing. No lymphadenopathy. Heart: Regular rate and rhythm. Abdomen: Soft, properly tender, mildly distended. No masses or lymphadenopathy. Drain serous Discharge Data Studies Completed and Pending Completed Studies During Hospitalization Category Date Time Status CT PE [CT angio chest PE protcl [id number]] Stat Cat Scan 06/08/24 16:[address] abdomen pelvis w con* [id number] Stat Cat Scan 06/06/24 20:18 Completed CXRIE [XR chest 2V insp/exp [id number]] Stat Exams 06/07/24 16:58 Completed Pending at discharge Category Date Time Status Blood Culture Stat Lab 06/06/24 22:05 Results Pathology: Surgical [PTH] Routine Pth 06/07/24 13:41 Received Radiology Impressions Abdomen/Pelvis CT 06/06/24 20:18 IMPRESSION: 1. Dilated appendix with enhancement of the moore and adjacent inflammation consistent with appendicitis. Minimal adjacent fluid without evidence of abscess formation or free air to suggest gross perforation. 2. Other incidental and chronic findings as above. ADDENDUM: 06/06/24 2237 THIS REPORT CONTAINS FINDINGS THAT MAY BE CRITICAL TO PATIENT CARE. The findings were verbally communicated by me via telephone conference to Dr. Mendez at 10:36 PM CDT on 06/06/2024. The findings were acknowledged and understood. Chest X-Ray 06/07/24 16:58 IMPRESSION: 1. Nonspecific hazy opacities in the mid to lower left lung, which may reflect atelectasis. Aspiration pneumonitis would be difficult to exclude in the proper clinical setting. Chest CTA 06/08/24 16:46 IMPRESSION: 1. Negative for pulmonary embolus. 2. Scattered mildly enlarged lymph nodes measuring up to 10 mm, nonspecific. 3. Small bilateral pleural effusions. 4. Hepatic steatosis and hepatomegaly. 5. Patchy bilateral airspace infiltrates. 6. Coronary artery atherosclerotic calcifications. 7. Cardiomegaly. Laboratory Results WBC 7.39 10^3/uL (3.29-11.43) 06/09/24 04:35 RBC 3.16 10^6/uL (3.85-5.65) L 06/09/24 04:35 Hgb 9.30 g/dL (11.27-16.99) L 06/09/24 04:35 Hct 29.0 % (36-47) L 06/09/24 04:35 MCV 91.8 fl (85-98) 06/09/24 04:35 MCH 29.4 pg (27-33) 06/09/24 04:35 MCHC 32.1 g/dL (30-55) 06/09/24 04:35 RDW 13.2 % (12.1-15.1) 06/09/24 04:35 Plt Count 151 10^3/cmm (157-399) L 06/09/24 04:35 MPV 11.9 fL (7.4-10.4) H 06/09/24 04:35 Neut % (Auto) 81.7 % 06/09/24 04:35 Lymph % (Auto) 10.7 % 06/09/24 04:35 [place] % (Auto) 6.8 % 06/09/24 04:35 Eos % (Auto) 0.1 % 06/09/24 04:35 Baso % (Auto) 0.4 % 06/09/24 04:35 Neut # (Auto) 6.04 10^3/uL (1.8-7.7) 06/09/24 04:35 Lymph # (Auto) 0.8 10^3/uL (0.8-4.8) 06/09/24 04:35 [place] # (Auto) 0.5 10^3/uL (0.2-0.9) 06/09/24 04:35 Eos # (Auto) 0.0 10^3/uL (0.0-0.8) 06/09/24 04:35 Baso # (Auto) 0.0 10^3/uL (0.0-0.1) 06/09/24 04:35 Nucleated RBC % (auto) 0 % 06/09/24 04:35 Nucleated RBCs # 0.0 /100WBC 06/09/24 04:35 Sodium 138 mmol/L (136-145) 06/08/24 18:13 Potassium 3.5 mmol/L (3.5-5.1) 06/08/24 18:13 Chloride 106 mmol/L (98-107) 06/08/24 18:13 Carbon Dioxide 21 mmol/L (22-29) L 06/08/24 18:13 Anion Gap 14.5 (5-19) 06/08/24 18:13 BUN 9 mg/dL (8-23) 06/08/24 18:13 Creatinine 0.8 mg/dL (0.5-0.9) 06/08/24 18:13 GFR Calculation 72.7 mL/min (90-130) L 06/08/24 18:13 Glucose 145 mg/dL (65-115) H 06/08/24 18:13 Calculated Osmolality 287 mOsm/kg (285-295) 06/08/24 18:13 Lactic Acid 2.3 mmol/L (0.5-2.2) H 06/06/24 20:31 Lactic Acid (Sepsis) 2.4 mmol/L (0.5-2.2) H 06/06/24 23:54 Calcium 7.9 mg/dL (8.5-10.5) L 06/08/24 18:13 Total Bilirubin 0.2 mg/dL (0.15-1.2) 06/06/24 20:31 AST 12 U/L (0-32) 06/06/24 20:31 ALT 11 U/L (0-33) 06/06/24 20:31 Alkaline Phosphatase 83 U/L (35-105) 06/06/24 20:31 C-Reactive Protein 3.0 mg/L (0.0-4.9) 06/06/24 20:31 Total Protein 7.1 g/dL (6.6-8.7) 06/06/24 20:31 Albumin 4.4 g/dL (3.5-5.2) 06/06/24 20:31 Globulin 2.7 g/dL (1.3-4.6) 06/06/24 20:31 Lipase 43 U/L (13-60) 06/06/24 20:31 Procalcitonin 0.04 ng/mL (0-0.5) 06/06/24 20:31 Urine Color Yellow (Yellow) 06/06/24 21:53 Urine Appearance Clear (CLEAR) 06/06/24 21:53 Urine pH 7.0 (5-7) 06/06/24 21:53 Ur Specific Wing 1.057 (1.005-1.030) H 06/06/24 21:53 Urine Protein Negative (Negative) 06/06/24 21:53 Urine Glucose (UA) Negative (Normal) 06/06/24 21:53 Urine Ketones Negative (Negative) 06/06/24 21:53 Urine Blood Negative (Negative) 06/06/24 21:53 Urine Nitrate Negative (Negative) 06/06/24 21:53 Urine Bilirubin Negative (Negative) 06/06/24 21:53 Urine Urobilinogen 0.2 mg/dL (Negative) 06/06/24 21:53 Ur Leukocyte Esterase Negative (Negative) 06/06/24 21:53 Urine RBC 0-2 /hpf (0-2) 06/06/24 21:53 Urine WBC 0-5 /hpf (0-5) 06/06/24 21:53 Ur Squamous Epith Cells 0-5 /hpf (0-5) 06/06/24 21:53 Amorphous Sediment Not Reportable 06/06/24 21:53 Urine Bacteria None seen /hpf (NONE) 06/06/24 21:53 Hyaline Casts 0.40 /lpf 06/06/24 21:53 Coronavirus (PCR) Negative (Negative) 06/06/24 20:40 Influenza A (PCR) Negative (Negative) 06/06/24 20:40 Influenza Type B (PCR) Negative (Negative) 06/06/24 20:40 RSV (PCR) Negative (Negative) 06/06/24 20:40 Vitals Last Vital Signs Temp 99.7 F H 06/09/24 12:00 Pulse 121 H 06/09/24 12:00 Resp 18 06/09/24 12:00 BP 159/77 06/09/24 12:00 Pulse Ox 90 06/09/24 08:00 O2 Del Method Nasal Cannula 06/09/24 08:00 O2 Flow Rate 3 06/09/24 08:00 Discharge Plan Discharge Patient Disposition: Home Condition: Stable Prescriptions: New oxycodone 5 mg tablet 5 mg PO Q6H PRN (Reason: pain) 5 Days Qty: 10 0RF amoxicillin-pot clavulanate 875-125 mg tablet 1 tab PO Q12H 5 Days Qty: 10 0RF Continued citalopram 20 mg tablet See Rx Instructions .ROUTE .COMPLEX Qty: 90 3RF Dose Instruction: TAKE 1 TABLET BY MOUTH DAILY Rx Instructions: TAKE 1 TABLET BY MOUTH DAILY valsartan-hydrochlorothiazide 80-12.5 mg tablet 1 tab PO DAILY Qty: 90 3RF levothyroxine 50 mcg tablet See Rx Instructions .ROUTE .COMPLEX Qty: 90 1RF Dose Instruction: TAKE 1 TABLET BY MOUTH DAILY Rx Instructions: TAKE 1 TABLET BY MOUTH DAILY amitriptyline 10 mg tablet 10 mg PO DAILY Qty: 90 1RF Discharge Orders: Discharge Order (Routine); Ordered 06/09/24 Ordered By: Eitan Brown Other Ambulatory Orders: DME: Oxygen (Order) Location: None Selected Ordered By: Eitan Brown Referrals: Eitan Brown MD [Physician] - 06/22/24 8:20 am () Eric Vizcaino DO [Primary Care Provider] - (We have notified your physician's clinic of the need for a follow-up appointment to be scheduled. If you have not heard from them within the next 2 business days, please call them directly. ) Patient Instructions: Amoxicillin/Clavulanate Potassium (By mouth), Oxycodone, Rapid Release (By mouth), Appendicitis (GEN), Acute Wound Care (DC), Laparoscopic Appendectomy (GEN), Opioid Safety, Post Anesthesia Care Discharge Attestations Time Spent in Discharge Care*: greater than 30 min Quality Metrics Clinical Quality Measures [ No reported AMI, CVA or VTE this stay] Coding Level of Care Code Acute Code for [facility] Fwd Diagnoses Acute appendicitis K35.80
[2024-06-09] MEDS: acetaminophen 325 mg Tablet 650 MG PO (13:48)
--- NOTE | 2024-06-09 14:23 | PC.NURSE ---
Addendum entered by Debi Calix LPN 06/09/24 14:31: D/C now pending delivery of oxygen. Original Note: D/C pending Home O2 eval.
[2024-06-09 14:34] VITALS: PULSE 101; RESP 18; O2SAT 94
[2024-06-09 14:35] VITALS: O2SAT 81; O2SAT 91
--- NOTE | 2024-06-09 14:36 | PC.SOCIAL ---
Patient qualified for oxygen. Orders faxed to HOME at this time.
== END 2024-06-09 15:39 | disposition home or self-care (01) | DRG 398 ==
LOC: ER 21:57 → MEDSURG 06-07 00:11
PROVIDERS: Admitting Provider Student in an Organized Health Care Education/Training Program; Emergency Provider Emergency Medicine; PCP Family Medicine; Visit Provider Student in an Organized Health Care Education/Training Program
PROC: 0DTJ4ZZ Resection of Appendix, Percutaneous Endoscopic Approach (ICD-10-PCS; CPT 44970; principal; 2024-06-07 14:00)
DX: K37 Unspecified appendicitis (principal); J98.11 Atelectasis; I10 Essential (primary) hypertension; E03.9 Hypothyroidism, unspecified; R00.0 Tachycardia, unspecified
CPT/HCPCS: 0241U; 36415; 71046; 71275; 74177; 80048; 80053; 81001; 83605; 83690; 84145; 85025; 86140; 87040; 88304; 94640; 94664; 94760; 96372; J1100; J1170; J1644; J1885; J2250; J2270; J2405; J2543; J2704; J3010; J3490; J7030

== ENCOUNTER 2025-01-04 08:39 | Outpatient (CLI) | payer OTHER, SELFPAY ==
[2025-01-04 09:48] LABS: Basophils # 0.1 10^3/uL (0.0-0.1); Basophils % 1.1 %; Eosinophils # 0.3 10^3/uL (0.0-0.8); Eosinophils % 4.6 %; Hematocrit 38.6 % (36-47); Lymphocytes # 1.6 10^3/uL (0.8-4.8); Lymphocytes % 27.7 %; Mean Corpuscular HGB Conc 33.2 g/dL (30-55); Mean Corpuscular Hemoglobin 29.2 pg (27-33); Mean Corpuscular Volume 87.9 fl (85-98); Mean Platelet Volume 11.6 fL (7.4-10.4); Monocytes # 0.4 10^3/uL (0.2-0.9); Monocytes % 7.2 %; Neutrophils # 3.38 10^3/uL (1.8-7.7); Nucleated Red Blood Cells % 0 %; Platelet Count 250 10^3/cmm (157-399); Red Blood Count 4.39 10^6/uL (3.85-5.65); Red Cell Distribution Width 12.6 % (12.1-15.1); White Blood Count 5.71 10^3/uL (3.29-11.43)
[2025-01-04 10:08] LABS: Estmated Average Glucose 105; Hemoglobin A1C 5.3 % (4.0-6.0)
[2025-01-04 10:24] LABS: 25 Hydroxy Vitamin D 59 ng/mL (30-100); Alanine Aminotransferase 11 U/L (0-33); Albumin Level 4.5 g/dL (3.5-5.2); Alkaline Phosphatase 92 U/L (35-105); Anion Gap 18.2 (5-19); Aspartate Amino Transferase 14 U/L (0-32); Blood Urea Nitrogen 14 mg/dL (8-23); Calcium 9.4 mg/dL (8.5-10.5); Carbon Dioxide 25 mmol/L (22-29); Chloride 103 mmol/L (98-107); Chol HDL Ratio 6.33 mg/dL (0.0-4.40); Cholesterol 209 mg/dL (0-200); Globulin 2.9 g/dL (1.3-4.6); Glucose 94 mg/dL (65-115); HDL Cholesterol 33 mg/dL (60-100); LDL Cholesterol Calculated 135 mg/dL (50-129); Osmolality Calculated 294 mOsm/kg (285-295); Potassium 4.2 mmol/L (3.5-5.1); Sodium 142 mmol/L (136-145); Thyroid Stimulating Hormone 1.09 uIU/mL (0.27-4.20); Total Bilirubin 0.4 mg/dL (0.15-1.2); Total Protein 7.4 g/dL (6.6-8.7); Triglycerides 206 mg/dL (0-150); VLDL Cholestrol Calculation 41 mg/dL (0-30); Vitamin B12 1546 pg/mL (232-1245)
== END 2025-01-04 08:40 | disposition home or self-care (01) ==
PROVIDERS: PCP Family Medicine; Visit Provider Family Medicine
DX: E78.5 Hyperlipidemia, unspecified (principal); E03.9 Hypothyroidism, unspecified; Z00.00 Encounter for general adult medical examination without abnormal findings
CPT/HCPCS: 80053; 80061; 82306; 82607; 83036; 84443; 85025

== ENCOUNTER 2025-06-13 10:39 | Outpatient (CLI) | payer OTHER, SELFPAY ==
--- NOTE | 2025-06-13 10:49 | XR_ITS ---
WS: [id number] LEFT SHOULDER: 2 VIEW(S) TECHNIQUE: Internal and external rotation. HISTORY: LEFT shoulder pain, limited. COMPARISON: 06/08/2024 CT chest. No acute fracture. Severe narrowing of the glenohumeral joint. Loss of the normal cortical surface of the glenoid and humeral head. Large hypertrophic osteophyte from the medial inferior humeral head measures 2.8 x 0.9 cm. Mild narrowing of the AC joint. Visualized upper lung is clear. XR/XR shoulder LT min 2V* [id number] IMPRESSION: 1. Severe narrowing of the glenohumeral joint. 2. Large hypertrophic osteophyte from the medial inferior humeral head extends into the joint space. Osteophyte measures 2.8 x 0.9 cm.
== END 2025-06-13 10:40 | disposition home or self-care (01) ==
PROVIDERS: PCP Family Medicine; Visit Provider Family Medicine
DX: M19.011 Primary osteoarthritis, right shoulder (principal); M25.712 Osteophyte, left shoulder
CPT/HCPCS: 73030